=== PATIENT | male | born 1980 | race Caucasian/White ===

== ENCOUNTER 2017-03-07 11:31 | Outpatient (CLI) ==
[2013-09-08 01:57] VITALS: BMI 23.0
[2017-03-07 12:15] LABS: BASOPHILS % (AUTO) 0.8 % (0.0-3.0); EOSINOPHILS # (AUTO) 0.5 K/ul (0.0-0.7); HEMATOCRIT 36.3 % (42.0-52.0); HEMOGLOBIN 12.3 g/dl (14.0-18.0); IMMATURE GRANULOCYTE % (AUTO) 0.3 % (0.0-5.0); LYMPHOCYTES # (AUTO) 1.1 K/uL (0.60-3.4); MEAN CORPUSCULAR HEMOGLOBIN 31.7 pg (27.0-31.0); MEAN CORPUSCULAR HGB CONC 33.9 (31.8-35.4); MEAN CORPUSCULAR VOLUME 93.6 fl (80.0-94.0); MONOCYTES # (AUTO) 0.3 K/uL (0.4-2.0); MONOCYTES % (AUTO) 7.5 (0-10); NEUTROPHILS # (AUTO) 1.8 K/ul (2.0-6.9); NEUTROPHILS % (AUTO) 48.4; PLATELET COUNT 76 10^3/uL (140-440); RED BLOOD COUNT 3.88 10^6/ul (4.70-6.10); WHITE BLOOD COUNT 3.72 K/ul (4.2-10.2)
[2017-03-07 12:40] LABS: ALBUMIN 3.8 g/dL (3.4-5.0); ALBUMIN/GLOBULIN RATIO 0.97; ANION GAP 14.8; BILIRUBIN,TOTAL 0.78 mg/dL (0.00-1.20); BUN/CREATININE RATIO 3.27; CALCIUM 9.2 mg/dL (8.2-10.2); POTASSIUM 3.8 mmol/L (3.5-5.1); TOTAL PROTEIN 7.7 g/dL (6.4-8.2)
[2017-03-07 12:51] LABS: CREATININE 4.28 mg/dL (0.60-1.10)
== END 2017-03-07 11:32 | disposition home or self-care (01) ==
LOC: LAB 11:31
PROVIDERS: ATTEND Internal Medicine Gastroenterology
DX: Z94.4 Liver transplant status (principal); Z79.899 Other long term (current) drug therapy
CPT/HCPCS: 36415; 80053; 80197; 82977; 85025

== ENCOUNTER 2017-08-31 07:35 | Outpatient (CLI) ==
[2013-09-08 01:57] VITALS: BMI 23.0
== END 2017-08-31 07:36 | disposition home or self-care (01) ==
LOC: LAB 07:35
PROVIDERS: ATTEND Internal Medicine Gastroenterology
DX: Z94.4 Liver transplant status (principal); Z79.899 Other long term (current) drug therapy
CPT/HCPCS: 36415; 80053; 80197; 82977; 85025

== ENCOUNTER 2017-12-07 09:07 | Outpatient (CLI) | payer OTHER ==
[2013-09-08 01:57] VITALS: BMI 23.0
== END 2017-12-07 09:08 | disposition home or self-care (01) ==
LOC: NONPT 09:07
PROVIDERS: ATTEND Internal Medicine Gastroenterology
DX: Z94.4 Liver transplant status (principal); Z79.899 Other long term (current) drug therapy
CPT/HCPCS: 80053; 80197; 82977; 85025

== ENCOUNTER 2018-03-11 14:25 | Outpatient (CLI) ==
[2013-09-08 01:57] VITALS: BMI 23.0
== END 2018-03-11 14:26 | disposition home or self-care (01) ==
LOC: NONPT 14:25
PROVIDERS: ATTEND Internal Medicine Gastroenterology
DX: Z94.4 Liver transplant status (principal); Z79.899 Other long term (current) drug therapy
CPT/HCPCS: 80053; 80197; 82977; 85025

== ENCOUNTER 2018-10-18 08:53 | Outpatient (CLI) | payer OTHER ==
[2013-09-08 01:57] VITALS: BMI 23.0
== END 2018-10-18 08:54 | disposition home or self-care (01) ==
LOC: NONPT 08:53
PROVIDERS: ATTEND Internal Medicine Gastroenterology
DX: Z94.4 Liver transplant status (principal); Z79.899 Other long term (current) drug therapy
CPT/HCPCS: 80053; 80197; 82977; 85025